=== PATIENT | female | born 1980 | race Native Hawaiian/Other Pacific Islander ===

== ENCOUNTER 2019-04-25 20:49 | Outpatient (CLI) | payer OTHER ==
--- NOTE | 2019-04-26 15:05 | Ultrasound Report ---
Reason: ABN VAGINAL BLEEDING Procedure Date: 04/25/2019 Accession Number: [id number] / [id number] Procedure: US - Pelvic w/Transvaginal CPT Code: Final Report FULL RESULT: EXAM: PELVIC ULTRASOUND EXAM DATE: 04/25/2019 10:00 PM. CLINICAL HISTORY: ABN VAGINAL BLEEDING. COMPARISON: None. TECHNIQUE: Realtime transabdominal pelvic scan performed to identify the uterus and adnexa and as an overview of other pelvic structures, followed by transvaginal scan to provide greater detail of the uterus and adnexa, with static image documentation. FINDINGS: Uterus: 8.7 x 5.5 x 6.6 cm, volume 165.4 cc. Anteverted position. Diffusely heterogeneous echotexture with scattered calcifications. Masses: 1.1 cm poorly defined submucosal fibroid. Endometrium: 12-15 mm. No focal endometrial abnormalities. Ill-defined borders. Cervix: Unremarkable. Right Ovary: 3.8 x 1.3 x 3.1 cm, volume 8.2 cc. Normal echotexture and blood flow. Left Ovary: 2.2 x 1.3 x 2.4 cm, volume 3.5 cc. Normal echotexture and blood flow. Free Fluid: None. Other: None. IMPRESSION: Submucosal fibroid measuring 1.1 cm. Ill-defined borders to the endometrium, nonspecific, can be seen with adenomyosis. This could be further evaluated with MRI. [facility]
== END 2019-04-25 20:50 | disposition home or self-care (01) ==
LOC: DI 20:49
PROVIDERS: ATTEND Nurse Practitioner Obstetrics & Gynecology
DX: D25.0 Submucous leiomyoma of uterus (principal)
CPT/HCPCS: 76830; 76856

== ENCOUNTER 2019-08-11 09:53 | Outpatient (CLI) | payer OTHER | END 2019-08-11 09:54 | disposition home or self-care (01) | LOC: COV 09:53 | PROVIDERS: ATTEND Obstetrics & Gynecology | DX: Z01.812 Encounter for preprocedural laboratory examination (principal); N93.9 Abnormal uterine and vaginal bleeding, unspecified | CPT/HCPCS: 81599 ==

== ENCOUNTER 2019-08-16 07:28 | Day surgery (SDC) | payer OTHER ==
[~2019-08-16 07:28] MED LIST: LACTATED RINGERS 1,000 ML IV ONE
[2019-08-16] MEDS ORDERED: MIDAZOLAM 2 MG/2 ML VIAL IVP ONE (07:29)
[2019-08-16] MEDS ORDERED: ONDANSETRON 4 MG/2 ML VIAL IVP ONE (07:29)
[2019-08-16] MEDS ORDERED: LIDOCAINE-MPF 2% 5 ML VIAL IM ONE (07:29)
[2019-08-16] MEDS ORDERED: ACETAMINOPHEN 1,000 MG/100 ML 100 ML IV ONE (07:29)
[2019-08-16] MEDS ORDERED: PROPOFOL 200 MG/20 ML VIAL IVP ONE (07:29)
[2019-08-16] MEDS ORDERED: fentaNYL 100 MCG/2 ML VIAL IVP ONE (07:29)
[2019-08-16] MEDS ORDERED: DEXAMETHASONE 4 MG/ML VIAL IVP ONE (07:29)
[2019-08-16] MEDS ORDERED: LIDOCAINE 1%-EPI 1:100000 30 ML MDV SUBQ ONE ×2 (07:30)
[2019-08-16] MEDS ORDERED: SILVER NITRATE APPLICATOR TOP ONE ×2 (07:31→09:02)
[2019-08-16 07:41] LABS: HCG UR QUAL NEGATIVE
--- NOTE | 2019-08-16 08:24 | ANESTHESIA ---
Pre-Anesthesia VS, & Labs - Diagnosis abnormal uterine bleeding - Procedure hysteroscopy, D&C Vital Signs: Temp Pulse Resp BP Pulse Ox 36.3 C L 80 12 128/88 H 100 08/16/19 07:31 08/16/19 07:31 08/16/19 07:31 08/16/19 07:31 08/16/19 07:31 Height 5 ft 4 in Weight (kg) 66.8 kg - NPO >8 hours - Is Patient ?: No - Lab Results Lab results reviewed: Yes Home Medications and Allergies Home Medications: Ambulatory Orders Fluticasone [Flonase] 1 spray IN DAILY 08/15/19 Methylphenidate HCl [Concerta] 54 mg PO DAILY 08/15/19 Prazosin [Minipress] 2 mg PO QPM 08/15/19 Propranolol [Inderal] 20 mg PO BID 08/15/19 buPROPion [Wellbutrin Sr] 300 mg PO DAILY 08/15/19 Oxymetazoline HCl [Afrin] 15 mg NS ONCE 06/19/15 Fluticasone [Flonase] 1 spray IN DAILY 08/15/19 Methylphenidate HCl [Concerta] 54 mg PO DAILY 08/15/19 Prazosin [Minipress] 2 mg PO QPM 08/15/19 Propranolol [Inderal] 20 mg PO BID 08/15/19 buPROPion [Wellbutrin Sr] 300 mg PO DAILY 08/15/19 Allergies/Adverse Reactions: Allergies Allergy/AdvReac Type Severity Reaction Status Date / Time ibuprofen Allergy Respiratory Verified 06/19/15 18:32 pseudoephedrine HCl * AdvReac Anxiety Verified 06/19/15 18:32 [From [facility]] Anes History & Medical History - Anesthetic History Anesthesia Complications: reports: No previous complications - Medical History Cardiovascular: reports: Hypertension Pulmonary: reports: None Gastrointestinal: reports: None Urinary: reports: None Musculoskeletal: reports: Scoliosis, Other Endocrine/Autoimmune: reports: HyPOthyroidism Skin: reports: None Smoking Status: Never smoker - Surgical History Gynecologic: Tubal ligation Exam General: Alert, Oriented x3, Cooperative Dental: WNL Mouth Opening: Greater than 4 Fingerbreadths Neck Mobility: Normal Mallampati classification: I Thyromental Distance: 4-6 cm Respiratory: Lungs clear Cardiovascular: Regular rate Plan Anesthesia Type: General, Total IV Consent for Procedure(s) Verified and Reviewed: Yes Code Status: Attempt Resuscitation ASA classification: 2-Mild systemic disease Is this case an emergency?: No
[2019-08-16] MEDS ORDERED: LIDOCAINE 1%-EPI 1:100000 20 ML MDV ONE (09:02)
[2019-08-16] MEDS ORDERED: oxyCODONE 5 MG TABLET PO PRN (10:14)
--- NOTE | 2019-08-16 10:44 | OPERATIVE REPORT ---
Operative Report - General Planned Procedure: Hysteroscopy D&C with possible polypectomy/myomectomy Pre-Op Diagnosis: Dysfunctional uterine bleeding with possible submucosal fibroid on pelvic u Procedure Performed: Hysteroscopy D&C with myomectomy Post Op Diagnosis: Same - Procedure Note Primary Surgeon: Tiffanie Sharma MD Anesthesia Provider: Airam Delgado CRNA Anesthesia Technique: MAC Pathology: Uterine contents IV Fluids (mL): 700 Estimated Blood Loss (mL): 10 Urine Output (mL): 350 Indications: 38 yo with DUB and pelvic us showing possible1.1 cm poorly defined submucosal fibroid and EMS of up to 15 mm with poorly defined borders. Findings: large, patulous cervix. Thickened endometrium with small submucosal fibroid-like mass in the anterior uterine wall distorting the uterine cavity. Normal bilateral tubal ostia. Once fibroid was released, uterine cavity expanded into normal uterine dimensions. Complications: None - Other Other Information/Narrative: Risks benefits and alternatives to the procedure were reviewed. Consent was again confirmed. Patient was taken to the operating room where she underwent general anesthesia. She was positioned in dorsolithotomy position with legs resting in yellowfin stirrups. She was prepped and draped in the usual sterile fashion. Preoperative antibiotics were not indicated. Preoperative checklist was performed. Exam under anesthesia was performed. Speculum was placed in the vagina and the cervix was visualized. Single-tooth tenaculum was placed at the anterior cervical lip. Paracervical block was administered using a total of 20 cc of 1% lidocaine with epinephrine was injected at the 4:00 and 8:00 positions lateral to the portio of the cervix. The cervical os was serially dilated with Hegar dilators to accommodate the caliber of the diagnostic hysteroscope. The hysteroscope was inserted and findings were noted as above. The hysteroscopic morcellator was inserted through the operative port. The intrauterine fibroid was morcellated under direct visualization. Uterine cavity was smooth and fully expanded into normal dimensions at close of the procedure. Hysteroscope was removed. Sharp curettage D&C was performed with sharp curettage. All instruments were removed from the uterus. Tenaculum was removed. Tenaculum sites were noted to be hemostatic. All instruments were removed from the vagina. Procedure was well-tolerated without complication. Fluid deficit: 475 cc
[2019-08-16] MEDS ORDERED: ONDANSETRON ODT 4 MG TABLET TL PRN (10:52)
[2019-08-16] MEDS ORDERED: ONDANSETRON 4 MG/2 ML VIAL ONE (10:57)
[2019-08-16] MEDS ORDERED: ONDANSETRON 4 MG/2 ML VIAL IVP PRN (10:57)
[2019-08-16] MEDS ORDERED: LACTATED RINGERS 1,000 ML IV ONE (11:09)
[2019-08-16 11:40] VITALS: BP 125/79
== END 2019-08-16 07:29 | disposition home or self-care (01) ==
LOC: SDS 07:28
PROVIDERS: ATTEND Obstetrics & Gynecology
PROC: 0UB98ZZ Excision of Uterus, Via Natural or Artificial Opening Endoscopic (ICD-10-PCS; principal; 2019-08-16 08:45)
DX: N93.8 Other specified abnormal uterine and vaginal bleeding (principal); R93.89 Abnormal findings on diagnostic imaging of other specified body structures; D25.9 Leiomyoma of uterus, unspecified; I10 Essential (primary) hypertension
CPT/HCPCS: 58561; 81025; 88305; A9270; J0131; J7120

== ENCOUNTER 2019-11-17 09:22 | Outpatient (CLI) | payer OTHER ==
[2019-11-17 09:43] LABS: BASOPHILS % (AUTO) 0.4 %; EOSINOPHILS # (AUTO) 0.1 10^3/uL (0.0-0.7); HGB - HEMOGLOBIN 13.1 g/dL (12.0-16.0); LYMPHOCYTES # (AUTO) 1.6 10^3/uL (1.5-3.5); MEAN CORPUSCULAR HEMOGLOBIN 28.9 pg (27.0-31.0); MEAN CORPUSCULAR HGB CONC 33.5 g/dL (32.0-36.0); MEAN CORPUSCULAR VOLUME 86.3 fL (81.0-99.0); MONOCYTES # (AUTO) 0.4 10^3/uL (0.0-1.0); MONOCYTES % (AUTO) 6.1 %; NEUTROPHILS # (AUTO) 5.1 10^3/uL (1.5-6.6); NEUTROPHILS % (AUTO) 70.2 %; PLT - PLATELET COUNT 296 10^3/uL (130-450); RED BLOOD COUNT 4.53 10^6/uL (4.20-5.40); RED CELL DISTRIBUTION WIDTH 12.6 % (12.0-15.0); WHITE BLOOD COUNT 7.2 x10^3/uL (4.8-10.8)
== END 2019-11-17 09:23 | disposition home or self-care (01) ==
LOC: LAB 09:22
PROVIDERS: ATTEND Obstetrics & Gynecology
DX: Z01.812 Encounter for preprocedural laboratory examination (principal); N93.9 Abnormal uterine and vaginal bleeding, unspecified; N85.00 Endometrial hyperplasia, unspecified; Z20.828 Contact with and (suspected) exposure to other viral communicable diseases
CPT/HCPCS: 36415; 85025

== ENCOUNTER 2019-11-22 06:30 | Day surgery (SDC) | payer OTHER ==
--- NOTE | 2019-11-21 23:18 | HISTORY & PHYSICAL EXAMINATION ---
HPI - History of Present Illness HPI Comment/Other: CC: PreOp TVH HPI: Pt is here today for a preop visit for a hysterectomy scheduled for 11/22/2019 ...................................................................DEMARIO Solis November 14, 2019 2:32 PM Patient is a 39-year-old G6, P6 here for preop assessment for total vaginal hysterectomy for dysfunctional uterine bleeding. She underwent a hysteroscopy D&C/myomectomy on 08/14. Pathology was benign. The patient reported that she had menses after surgery, with her last menstrual period was approximately 09/03. She reported that it was heavier than usual. After her surgery, she had about 2-1/2 to 3 weeks of no bleeding. Then she had her menses which lasted 9 days and then she had a week of no blood at all. Had additional bleeding at time of prior visit. Degree of continued bleeding had prompted desire for definitive management with hysterectomy. Of note, she has lost an additional 15# since time of last visit. She is not having any pain. She still has vaginal discharge, which she reports as a milky, clear discharge. Patient was initially seen in clinic in March 2019. She reported dysfunctional uterine bleeding. She had a pelvic ultrasound showing that she has a 1.1 cm poorly defined submucosal fibroid. Endometrium was 12 to 15 mm thick. No focal endometrial abnormalities. Ill-defined borders.Defined borders nonspecific can be seen in adenomyosis as per radiology. Patient has undergone a LEEP in 2009 with a normal Pap following. Last Pap was April 21, 2019. Normal and HPV negative.Contraception is bilateral tubal ligation. No prior STIs. Past medical history significant for hypertension and low back pain. Medications include Wellbutrin, propanolol for anxiety. She has had a 45 pound unintended weight loss within the last year. Allergies: IBUPROFEN (Moderate) Medications: TRANEXAMIC ACID 650 MG ORAL TABLET (TRANEXAMIC ACID) Take one tablet by mouth three times a day for 5 days during menses; Route: ORAL MINIPRESS 2 MG ORAL CAPSULE (PRAZOSIN HCL) leila one tablet by mouth daily; Route: ORAL WELLBUTRIN XL 300 MG ORAL TABLET EXTENDED RELEASE 24 HOUR (BUPROPION HCL) take one tablet by mouth daily; Route: ORAL PROPRANOLOL HCL 20 MG ORAL TABLET (PROPRANOLOL HCL) tkae two tablet by mouth daily; Route: ORAL HYDROXYZINE HCL 25 MG ORAL TABLET (HYDROXYZINE HCL) take one tablet by mouth daily; Route: ORAL CONCERTA 36 MG ORAL TABLET EXTENDED RELEASE (METHYLPHENIDATE HCL) Take one tablet by mouth twice daily; Route: ORAL Problems: Preoperative exam (ICD-V72.84) (XIU05-D56.818) Post op (ICD-V67.00) (SKX84-J82.890) Diastasis recti (ICD-728.84) (SPW68-K04.08) Thickened endometrium (ICD-793.5) (SGG29-O90.00) Abnormal vaginal bleeding (ICD-626.9) (DBX23-G23.9) (Hx of) Abnormal findings, Pap smear, cervix (ICD-795.00) (UZV46-S72.619) Cervix, screening for malignant neoplasm (ICD-V76.2) (SFP58-D11.4) Risk Factors: Smoked Tobacco Use: Never smoker Smokeless Tobacco Use: Never Passive Smoke Exposure: no HIV High Risk Behavior: no Exercise: no Seatbelt Use: 100 % Sun Exposure: occasionally Alcohol Use: yes Type: Wine Drinks per day: social Drug Use: no Vital Signs: Patient Profile: 38 Years Old Female Height: 64 inches (162.56 cm) Weight: 135 pounds BMI: 23.26 BP sittin / 84 Cuff size: regular Vitals Entered By: DEMARIO Solis (November 14, 2019 2:32 PM) Meds Reviewed: Done Allergies Reviewed: Done Questionnaire Would you like to become in the next year? No Are you currently using contraception? Yes Education provided to patient? 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 Physical Constitutional: GEN: NAD HEAD: NCAT EYES: No scleral icterus or conjunctival injection NECK: No cervical LAD or TM CV: RRR RESP: CTAB, normal effort ABD: S&NT/ND PSYCH: appropriate affect NEURO: alert and oriented, normal gait and coordination EXT: WWP Impression & Recommendations: Problem # 1: Preoperative exam (ICD-V72.84) (TLF27-B84.818) Preop examination for total vaginal hysterectomy and bilateral salpingectomy. We discussed risks, benefits, alternatives. Reviewed all surgical procedures carry risks of bleeding, infection, and damage nearby tissue and organs. Discussed the risk of infection with blood transfusion is relatively low. Risk of HIV is 1 in 2 million nationwide, risk of hepatitis is 1/million nationwide. Reviewed for possibility of transfusion reaction and possible management with medications. She is provided consent for blood transfusion. Reviewed that anatomically speaking that the vagina is full of bacteria. We cannot fully sterilized the vagina, nor would we want to. When the incision is made to release the uterus from the abdomen, a pathway for bacteria into the otherwise sterile abdominal cavity is created. For this reason we will give her IV antibiotics. She denies any allergies to antibiotics. We discussed the anatomical proximity of other organs near the uterus including but not limited to the bladder, ureters, and bowel. As surgeons, we used a number of surgical to techniques to avoid damaging any of these other organs. We reviewed, that despite her best efforts, sometimes injury occurs to these organs. We discussed that this may cause complicated post operative course. We also discussed the possibility of converting to an open or laparoscopic procedure. She provided consent to all of the above. We will proceed to surgery with a scheduled operating room date. Orders: PRE OP -[id number] ([id number]) Gender ID Identifies as Female T: 6 L: 6 LMP: 03/28/2019 Height: 64 (09/28/2019 1:26:41 PM) Weight: 135 Is pt sexualy active? yes Is patient on control? Tubal Ligation Control Plan(per PISQ): Female sterilization Last Pap: Normal (04/21/2019 3:58:10 PM) Next pap due: 04/21/2024 (04/25/2019 3:57:59 PM) History of Colpo, LEEP Last EMB: Positive (06/15/2019 10:44:46 AM) Current Allergies: IBUPROFEN (Moderate) Current Meds: TRANEXAMIC ACID 650 MG ORAL TABLET (TRANEXAMIC ACID) Take one tablet by mouth three times a day for 5 days during menses; Route: ORAL MINIPRESS 2 MG ORAL CAPSULE (PRAZOSIN HCL) leila one tablet by mouth daily; Route: ORAL WELLBUTRIN XL 300 MG ORAL TABLET EXTENDED RELEASE 24 HOUR (BUPROPION HCL) take one tablet by mouth daily; Route: ORAL PROPRANOLOL HCL 20 MG ORAL TABLET (PROPRANOLOL HCL) tkae two tablet by mouth daily; Route: ORAL HYDROXYZINE HCL 25 MG ORAL TABLET (HYDROXYZINE HCL) take one tablet by mouth daily; Route: ORAL CONCERTA 36 MG ORAL TABLET EXTENDED RELEASE (METHYLPHENIDATE HCL) Take one tablet by mouth twice daily; Route: ORAL PMH/PSH - Past Medical History Cardiovascular: positive: Hypertension Respiratory: positive: Asthma Endocrine/Autoimmune: positive: HyPOthyroidism GI: positive: None : positive: None HEENT: positive: Chronic vision loss Psych: positive: Depression, Anxiety, ADD/ADHD, Post traumatic stress disorder Musculoskeletal: positive: Scoliosis, Chronic back pain, Other Derm: positive: None MRSA Hx?: No - 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, Tubal ligation, Other Social & Family Hx - Social History Does the pt smoke?: No Smoking Status: Never smoker Does the pt drink ETOH?: No Does the pt have substance abuse?: No Meds/Allgy - Home Medications Home Medications: Ambulatory Orders Medication Instructions Recorded Confirmed Oxymetazoline HCl [Afrin] 15 mg NS ONCE PRN 06/19/15 11/13/19 Fluticasone [Flonase] 1 spray IN QPM 08/15/19 11/13/19 Methylphenidate HCl [Concerta] 36 mg PO BID 08/15/19 11/13/19 Prazosin [Minipress] 4 mg PO QPM 08/15/19 11/13/19 Propranolol [Inderal] 20 mg PO BID 08/15/19 11/13/19 buPROPion [Wellbutrin Sr] 300 mg PO DAILY 08/15/19 11/13/19 hydrOXYzine HCL [Hydroxyzine HCl] 25 mg PO QPM 11/13/19 11/13/19 - Allergies Allergies/Adverse Reactions: Allergies Allergy/AdvReac Type Severity Reaction Status Date / Time ibuprofen Allergy Respiratory Verified 06/19/15 18:32 pseudoephedrine HCl * AdvReac Anxiety Verified 06/19/15 18:32 [From [facility]]
[~2019-11-22 06:30] MED LIST changes: +ACETAMINOPHEN 1,000 MG/100 ML 100 ML IV ONE; +CEFAZOLIN SODIUM IN 0.9 % NACL 2 GM/100 ML BAG IV ONE; +CELECOXIB 100 MG CAPSULE PO ONE; +GABAPENTIN 400 MG CAPSULE ONE; -LACTATED RINGERS 1,000 ML IV ONE; +PHENAZOPYRIDINE 100 MG TABLET PO ONE
[2019-11-22] MEDS ORDERED: LACTATED RINGERS 1,000 ML IV ONE ×2 (06:48→10:51)
[2019-11-22 07:11] LABS: HCG UR QUAL NEGATIVE
[2019-11-22] MEDS ORDERED: ATROPINE ABBOJECT 1 MG/10 ML SYRINGE IVP PRN (07:12)
[2019-11-22] MEDS ORDERED: fentaNYL 100 MCG/2 ML VIAL IVP PRN (07:12)
[2019-11-22] MEDS ORDERED: ePHEDrine 50 MG/ML VIAL IVP PRN (07:12)
[2019-11-22] MEDS ORDERED: MORPHINE 2 MG/ML CARPUJECT IVP PRN (07:12)
[2019-11-22] MEDS ORDERED: ONDANSETRON 4 MG/2 ML VIAL IVP PRN (07:12)
[2019-11-22] MEDS ORDERED: METOCLOPRAMIDE 10 MG/2 ML VIAL IVP PRN ×2 (07:12→17:56)
[2019-11-22] MEDS ORDERED: NALOXONE 0.4 MG/ML VIAL IVP PRN (07:12)
[2019-11-22] MEDS ORDERED: HYDROmorphone 0.5 MG/0.5 ML SYRINGE IVP PRN (07:12)
--- NOTE | 2019-11-22 07:15 | ANESTHESIA ---
Pre-Anesthesia VS, & Labs - Diagnosis abnormal vaginal bleeding, thickened endometrium, s/p hysteroscopy - Procedure Total vaginal hysterectomy, cystoscopy Vital Signs: Temp Pulse Resp BP Pulse Ox 36.3 C L 87 18 137/99 H 98 11/22/19 06:49 11/22/19 06:49 11/22/19 06:49 11/22/19 06:49 11/22/19 06:49 Height 5 ft 4 in Weight (kg) 69.8 kg - NPO >8 hours - Is Patient ?: No - Lab Results Lab results reviewed: Yes Home Medications and Allergies Home Medications: Ambulatory Orders hydrOXYzine HCL [Hydroxyzine HCl] 25 mg PO QPM 11/13/19 Active Medications Fentanyl (Fentanyl) 25 - 50 mcg IVP Q5M PRN PRN Reason: BREAKTHROUGH PAIN ([facility] Choice) Stop: 11/23/19 07:12 Hydromorphone HCl (Dilaudid Inj Syringe) 0.2 - 0.6 mg IVP Q5M PRN PRN Reason: PAIN ([facility] Choice) Stop: 11/23/19 07:12 Lactated Ringer's (Lr) 1,000 mls @ 100 mls/hr IV .Q10H URI Stop: 11/22/19 17:59 Scopolamine HBr (Transderm-Scop) 1 patch TOP Q3D URI Oxymetazoline HCl [Afrin] 15 mg NS ONCE PRN 06/19/15 Fluticasone [Flonase] 1 spray IN QPM 08/15/19 Methylphenidate HCl [Concerta] 36 mg PO BID 08/15/19 Prazosin [Minipress] 4 mg PO QPM 08/15/19 Propranolol [Inderal] 20 mg PO BID 08/15/19 buPROPion [Wellbutrin Sr] 300 mg PO DAILY 08/15/19 hydrOXYzine HCL [Hydroxyzine HCl] 25 mg PO QPM 11/13/19 Allergies/Adverse Reactions: Allergies Allergy/AdvReac Type Severity Reaction Status Date / Time ibuprofen Allergy Respiratory Verified 11/22/19 06:59 pseudoephedrine HCl * AdvReac Anxiety Verified 11/22/19 06:59 [From [facility]] Anes History & Medical History - Anesthetic History Anesthesia Complications: reports: Post-Operative Nausea/Vomiting Family history of Anesthesia Complications: Denies Family history of Malignant Hyperthermia: Denies - Medical History Gastrointestinal: reports: None Urinary: reports: None Musculoskeletal: reports: Scoliosis, Chronic back pain, Other Skin: reports: None Smoking Status: Never smoker Psychosocial: reports: Depression, Anxiety - Surgical History Gynecologic: Dilation and currettage, Tubal ligation, Other Exam General: Alert, Oriented x3, Cooperative, No acute distress Dental: WNL Mouth Openin Fingerbreadth Neck Mobility: Normal Mallampati classification: I Respiratory: Lungs clear, Normal breath sounds, No respiratory distress Cardiovascular: Regular rate, Normal S1, Normal S2, No murmurs Plan Anesthesia Type: General Consent for Procedure(s) Verified and Reviewed: Yes Code Status: Attempt Resuscitation ASA classification: 1-Healthy patient Is this case an emergency?: No
[2019-11-22] MEDS ORDERED: LIDOCAINE 1%-EPI 1:100000 20 ML MDV ONE (07:45)
[2019-11-22] MEDS ORDERED: METHYLENE BLUE 0.5% 50 MG/10 ML AMPULE ONE (07:45)
[2019-11-22] MEDS ORDERED: VASOPRESSIN 20 UNIT/ML VIAL ONE (07:45)
[2019-11-22] MEDS ORDERED: HYDROmorphone 1 MG/ML CARPUJECT IVP ONE (07:57)
[2019-11-22] MEDS ORDERED: PROPOFOL 200 MG/20 ML VIAL IVP ONE (07:57)
[2019-11-22] MEDS ORDERED: MIDAZOLAM 2 MG/2 ML VIAL IVP ONE (07:57)
[2019-11-22] MEDS ORDERED: ROCURONIUM 50 MG/5 ML VIAL IVP ONE (07:57)
[2019-11-22] MEDS ORDERED: LIDOCAINE-MPF 2% 5 ML VIAL IM ONE (07:57)
[2019-11-22] MEDS ORDERED: fentaNYL 100 MCG/2 ML VIAL IVP ONE (07:57)
[2019-11-22] MEDS ORDERED: ONDANSETRON 4 MG/2 ML VIAL IVP ONE (07:57)
[2019-11-22] MEDS ORDERED: DEXAMETHASONE 4 MG/ML VIAL IVP ONE (07:57)
[2019-11-22] MEDS ORDERED: ACETAMINOPHEN 1,000 MG/100 ML 100 ML IV ONE (07:57)
[2019-11-22] MEDS ORDERED: SCOPOLAMINE PATCH TOP SCH (08:00)
[2019-11-22] MEDS ORDERED: LACTATED RINGERS 1,000 ML IV SCH (08:00)
[2019-11-22] MEDS ORDERED: METHYLENE BLUE 0.5% 50 MG/10 ML AMPULE IR ONE (08:19)
[2019-11-22] MEDS ORDERED: LIDOCAINE 1%-EPI 1:100000 30 ML MDV SUBQ ONE (08:28)
[2019-11-22] MEDS ORDERED: VASOPRESSIN 20 UNIT/ML VIAL IVP ONE (08:30)
[2019-11-22] MEDS ORDERED: oxyCODONE 5 MG TABLET PO PRN (11:18)
[2019-11-22] MEDS ORDERED: ONDANSETRON ODT 4 MG TABLET TL PRN (11:18)
[2019-11-22] MEDS ORDERED: HYDROmorphone 1 MG/ML CARPUJECT IVP PRN (11:18)
[2019-11-22] MEDS ORDERED: HYDROmorphone 0.5 MG/0.5 ML SYRINGE ONE (11:27)
--- NOTE | 2019-11-22 11:30 | OPERATIVE REPORT ---
Operative Report - General Procedure Date: 11/22/19 Planned Procedure: Total vaginal hysterectomy and cystoscopy Pre-Op Diagnosis: Dysfunctional uterine bleeding Procedure Performed: Total vaginal hysterectomy and cystoscopy Post Op Diagnosis: Same - Procedure Note Primary Surgeon: Tiffanie Sharma MD Secondary Surgeon: Marc Cortez MD Anesthesia Provider: Nishant Solano CRNA Anesthesia Technique: General ET tube Pathology: Uterus with cervix IV Fluids (mL): 500 Estimated Blood Loss (mL): 75 Urine Output (mL): 300 Indications: Patient is a 39 yo with dysfunctional uterine bleeding who has failed conservative management and desires definitive surgical management. She has previously undergone tubal ligation and confirms she has not further interest in childbearing. Findings: Normal appearing bulbous uterus. Normal appearing ovaries. Fallopian tubes not visualized. Cystoscopy performed post-operatively showed bilateral ureteral jets and absence of suture or injury on survey of the bladder mucosa. Complications: None - Other Other Information/Narrative: Consent was again confirmed. The patient was brought to the OR and underweight general anesthesia. She was placed in dorsal lithotomy with legs supported in yellowfin stirrups. Bimanual exam was performed. She was then prepared and draped in the usual sterile fashion. Jiménez catheter was in place and backfilled with 50 cc of dilute methylene blue and clamped. SCDs were confirmed to be in place and operating. A surgical time out was performed. Administration of 2g IV cefazolin was confirmed. A weighted speculum was placed in the posterior vaginal vault. The cervix was grasped with a a double toothed tenaculum clamp on both its anterior and posterior lips. A total of 20 cc of 20mg vasopressin/100 cc was injected in a circumferential direction around the cervix. With downward traction, we made a circumferential incision of the vaginal epithelium at the junction of the cervix with the bovie cautery to aid entry into the peritoneum. The overlying vaginal epithelium was dissected off the underlying cervical stroma in an combination of sharp and blunt dissection. The cervicovesical space was then created by both blunt and sharp dissection. At no point was there spillage of methylene blue. Entrance into the anterior space was completed and a right angle retractor was inserted under the bladder. The posterior cul-de-sac was entered sharply in the same manner. A long necked weighted speculum was then placed in the vagina through the posterior space. The uterosacral ligaments were clamped with Jose clamps and ligated with #0 Vicryl suture bilaterally. A moistened sponge stick was placed in the posterior cul de sac to retract the bowel and patient was placed in Trendelenburg position. A laparoscopic Ligasure bipolar device was then used to seal and ligate each pedicle. The uterosacral ligaments were suture ligated as above. The cardinal ligaments, uterine vessels, broad ligaments, and utero-ovarian pedicles were sealed and ligated with the Ligasure device. The ovaries were visualized on either side. The tubes were surgically absent. Ovaries were inspected as with findings noted above. We then removed the weighted duckbill speculum and placed a regular speculum in the vaginal vault and visualized the entire area. We inspected for hemostasis, and this was secured. The peritoneum was closed with 2-0 Vicryl with a running pursestring suture. The uterosacral ligaments were then fixed to the anterior and posterior vaginal cuff margins to aid in vaginal support. The vaginal cuff was then closed with interrupted figure of 8 sutures using 0-Vicryl. Hemostasis was excellent. The vaginal vault was cleared of debris. The sponge count was correct times 2 at this time. A Jiménez catheter was then unclamped. The bladder was drained and the Jiménez was removed. The cystoscope was inserted and the bladder was distended with normal saline. The survey of all of the bladder surfaces was completed and was noted to be absent of suture or trauma. Ureteral jets were observed directly bilaterally. Bladder was drained and cystoscope was removed. Jiménez catheter was replaced. All instruments were removed from the vagina and goldman hemostasis was noted. The patients procedure was terminated. She was sent to the Recovery Room in good condition. Dr. Cortez assisted with retraction, assistance with suturing, cystoscopy, and sharing of surgical insight.
--- NOTE | 2019-11-22 13:08 | ANESTHESIA POST OP EVALUATION ---
Anesthesia Post Eval - Post Anesthesia Eval Vitals: Last Vital Signs Temp 36.9 C 11/22/19 11:45 Pulse 79 11/22/19 11:45 Resp 14 11/22/19 11:45 BP 120/68 11/22/19 11:45 Pulse Ox 97 11/22/19 11:45 CV Function Including HR & BP: positive: Stable Pain Control: positive: Satisfactory Nausea & Vomiting: positive: Negative Mental Status: positive: Baseline Respiratory Status: Airway Patent Hydration Status: Satisfactory Anesthesia Complications: positive: None
[2019-11-22] MEDS: ACETAMINOPHEN 500 MG TABLET PO SCH ×2 (14:01→19:33)
[2019-11-22] MEDS: LACTATED RINGERS 1,000 ML IV SCH ×2 (14:01→23:57)
[2019-11-22] MEDS: SIMETHICONE CHEW 80 MG TABLET PO PRN ×2 (14:02→18:03)
[2019-11-22] MEDS: DOCUSATE SODIUM 100 MG CAPSULE PO SCH (21:48)
[2019-11-22] MEDS: CELECOXIB 100 MG CAPSULE PO SCH (21:48)
[2019-11-23] MEDS: ACETAMINOPHEN 500 MG TABLET PO SCH ×2 (03:38→11:47)
[2019-11-23 05:20] LABS: BASOPHILS % (AUTO) 0.4 %; EOSINOPHILS % (AUTO) 0.4 %; HGB - HEMOGLOBIN 10.8 g/dL (12.0-16.0); LYMPHOCYTES # (AUTO) 1.8 10^3/uL (1.5-3.5); LYMPHOCYTES % (AUTO) 18.6 %; MEAN CORPUSCULAR HEMOGLOBIN 28.3 pg (27.0-31.0); MEAN CORPUSCULAR HGB CONC 32.8 g/dL (32.0-36.0); MEAN CORPUSCULAR VOLUME 86.1 fL (81.0-99.0); MEAN PLATELET VOLUME 9.2 fL (7.9-10.8); MONOCYTES # (AUTO) 0.7 10^3/uL (0.0-1.0); MONOCYTES % (AUTO) 6.9 %; NEUTROPHILS # (AUTO) 7.2 10^3/uL (1.5-6.6); NEUTROPHILS % (AUTO) 73.3 %; PLT - PLATELET COUNT 293 10^3/uL (130-450); RED BLOOD COUNT 3.82 10^6/uL (4.20-5.40); RED CELL DISTRIBUTION WIDTH 12.7 % (12.0-15.0); WHITE BLOOD COUNT 9.8 x10^3/uL (4.8-10.8)
[2019-11-23] MEDS ORDERED: ENOXAPARIN 40 MG/0.4 ML SYRINGE SUBQ SCH (09:00)
[2019-11-23 09:01] VITALS: BP 124/76
[2019-11-23] MEDS: CELECOXIB 100 MG CAPSULE PO SCH (09:32)
[2019-11-23] MEDS: DOCUSATE SODIUM 100 MG CAPSULE PO SCH (09:32)
[2019-11-23] MEDS: LACTATED RINGERS 1,000 ML IV SCH (09:34)
--- NOTE | 2019-11-23 11:34 | PROVIDER PROGRESS NOTE ---
Subjective - Prog Note Date Prog Note Date: 11/23/19 Prog Note Time: 10:00 - Subjective Subjective: Patient is up and ambulating, tolerating po. Pain is well managed on po meds. Voiding. No concerns. Nausea relieved and minimal spotting. Objective - Vital Signs/Intake & Output Reviewed Vital Signs: Yes Vital Signs: Vital Signs x48h Temp Pulse Resp BP Pulse Ox 11/23/19 09:00 98.6 F 74 18 124/76 100 11/23/19 03:45 98.8 F 73 16 112/65 100 Intake & Output: Intake & Output 11/20/19 11/21/19 11/22/19 11/23/19 23:59 23:59 23:59 23:59 Intake Total 4054.549 9451.667 Output Total 2375 1750 Balance -1121.667 -518.333 - Objective General Appearance: positive: No acute distress Respiratory: positive: Chest non-tender, No respiratory distress Cardiovascular: positive: Regular rate & rhythm, Other Abdomen: positive: Non-tender Skin: positive: Color nml Extremities: positive: Non-tender, Nml appearance Neurologic/Psychiatric: positive: Oriented x3 - Lab Results Fish Bones: 11/23/19 04:25 Other Labs: Lab Results x24hrs 11/23/19 Range/Units 04:25 WBC 9.8 (4.8-10.8) x10^3/uL RBC 3.82 L (4.20-5.40) 10^6/uL Hgb 10.8 L (12.0-16.0) g/dL Hct 32.9 L (37.0-47.0) % MCV 86.1 (81.0-99.0) fL MCH 28.3 (27.0-31.0) pg MCHC 32.8 (32.0-36.0) g/dL RDW 12.7 (12.0-15.0) % Plt Count 293 (130-450) 10^3/uL MPV 9.2 (7.9-10.8) fL Neut # (Auto) 7.2 H (1.5-6.6) 10^3/uL Lymph # (Auto) 1.8 (1.5-3.5) 10^3/uL [place] # (Auto) 0.7 (0.0-1.0) 10^3/uL Eos # (Auto) 0.0 (0.0-0.7) 10^3/uL Baso # (Auto) 0.0 (0.0-0.1) 10^3/uL Absolute Nucleated RBC 0.00 x10^3/uL Nucleated RBC % 0.0 /100WBC Assessment/Plan - Problem List (1) S/P vaginal hysterectomy Impression: POD#1 s/p TVH Doing well Meeting goals for discharge Routine discharge instructions were given DC to home FU in clinic in 1 and 4 weeks
== END 2019-11-23 12:00 | disposition home or self-care (01) ==
LOC: SDS 06:30 → MS2 12:16 → SDS 11-23 12:00
PROVIDERS: ATTEND Obstetrics & Gynecology
PROC: 0UT9FZZ Resection of Uterus, Via Natural or Artificial Opening With Percutaneous Endoscopic Assistance (ICD-10-PCS; principal; 2019-11-22 07:30)
DX: N80.0 Endometriosis of uterus (principal); D25.9 Leiomyoma of uterus, unspecified; J45.909 Unspecified asthma, uncomplicated; I10 Essential (primary) hypertension; E03.9 Hypothyroidism, unspecified; F41.9 Anxiety disorder, unspecified; F32.9 Major depressive disorder, single episode, unspecified; F90.9 Attention-deficit hyperactivity disorder, unspecified type; F43.10 Post-traumatic stress disorder, unspecified; R63.4 Abnormal weight loss; Z68.23 Body mass index [BMI] 23.0-23.9, adult; G89.29 Other chronic pain; M41.9 Scoliosis, unspecified; H54.7 Unspecified visual loss; Z79.899 Other long term (current) drug therapy
CPT/HCPCS: 36415; 58550; 81025; 85025; A9270; J0131; J0690; J1170; J1650; J2765; J3490; J7120; Q0162

== ENCOUNTER 2020-01-04 11:15 | Outpatient (CLI) | payer OTHER ==
[2020-01-05 20:15] LABS: CANDIDA GROUP DNA NEGATIVE (NEGATIVE); CANDIDA KRUSEI DNA NEGATIVE (NEGATIVE); TRICHOMONAS VAGINALIS DNA NEGATIVE (NEGATIVE)
== END 2020-01-04 23:59 | disposition home or self-care (01) ==
LOC: LAB.R 11:15
PROVIDERS: ATTEND Obstetrics & Gynecology
DX: N39.0 Urinary tract infection, site not specified (principal); N89.8 Other specified noninflammatory disorders of vagina
CPT/HCPCS: 87077; 87086; 87181; 87661; 87801

== ENCOUNTER 2020-02-20 07:37 | Outpatient (CLI) | payer OTHER ==
--- NOTE | 2020-02-20 11:09 | XRAY Report ---
PROCEDURE: Lumbar Spine 2 View INDICATIONS: CHRONIC LOW BACK PAIN TECHNIQUE: 2 views of the lumbar spine were acquired. COMPARISON: Lumbar spine MRI dated 10/20/2014 FINDINGS: Bones: 5 [id number] vertebrae are present, with relatively rudimentary ribs at the T12 level. T here is dextroconvex curvature of the spine at the thoracolumbar junction with apex at the L1 level. No significant spondylolisthesis is seen. No vertebral body compression fractures. No suspicious bon y lesions. Mild degenerative endplate changes and facet hypertrophy are seen at the L4-5 and L5-S1 l evels. Soft tissues: Overlying bowel gas pattern is normal. No suspicious soft tissue calcifications. IMPRESSION: 1. No acute osseous abnormality. 2. Mild spondylosis at L4-5 and L5-S1. 3. Mild dextroconvex curvature. Reviewed by: Erik White MD on 02/20/2020 10:07 AM [facility] Approved by: Erik White MD on 02/20/2020 10:07 AM [facility] Station ID: [id number]
== END 2020-02-20 23:59 | disposition home or self-care (01) ==
LOC: DI.WCP 07:37
PROVIDERS: ATTEND Nurse Practitioner Family
DX: M47.817 Spondylosis without myelopathy or radiculopathy, lumbosacral region (principal)

== ENCOUNTER 2020-02-21 08:00 | Outpatient (CLI) | payer OTHER ==
[2020-02-21 18:42] LABS: ALBUMIN/GLOBULIN RATIO 1.5 (1.0-2.2); ALKALINE PHOSPHATASE 60 IU/L (42-121); ALT ALANINE AMINOTRANSFERASE 14 IU/L (10-60); AST ASPARTATE AMINOTRANSFERASE 15 IU/L (10-42); BILIRUBIN,TOTAL 0.6 mg/dL (0.2-1.0); BUN - BLOOD UREA NITROGEN 8 mg/dL (6-20); CALCIUM 9.6 mg/dL (8.5-10.3); CARBON DIOXIDE - CO2 23 mmol/L (21-32); CHLORIDE 104 mmol/L (101-111); CHOL/HDL RATIO 3.1 (<4.4); CHOLESTEROL 187 mg/dL; CREATININE 0.7 mg/dL (0.4-1.0); GLUCOSE 85 mg/dL (70-100); HDL CHOLESTEROL 61 mg/dL; LDL CHOLESTEROL,CALCULATED 107 mg/dL; LDL/HDL RATIO 1.8 (<4.4); SODIUM 136 mmol/L (135-145); TOTAL PROTEIN 8.4 g/dL (6.7-8.2); VLDL CHOLESTEROL 19 mg/dL
== END 2020-02-21 08:01 | disposition home or self-care (01) ==
LOC: LAB.WCP 08:00
PROVIDERS: ATTEND Nurse Practitioner Family
DX: R03.0 Elevated blood-pressure reading, without diagnosis of hypertension (principal)
CPT/HCPCS: 36415; 80053; 80061; 83721; 84443

== ENCOUNTER 2020-12-10 08:09 | Outpatient (CLI) | payer OTHER ==
--- NOTE | 2020-12-10 13:21 | MRI Report ---
PROCEDURE: Lumbar Spine W/O INDICATIONS: LEFT LUMBAR RADICULOPATHY TECHNIQUE: Noncontrast sagittal T1 spin echo and T2 fast echo, sagittal STIR, axial T1 and T2 fast spin echo thr ough the lumbar spine. In cases with scoliosis, additional coronal T2 fast spin echo may be performe d. COMPARISON: MRI lumbar spine 11/08/2014 FINDINGS: Image quality: Excellent. Alignment and Curvature: There is appearance of transitional anatomy with lumbarization of what appe ars to be the first sacral vertebral body. In keeping with prior numbering, vertebral bodies are labe led one through 5. Bone Marrow: Marrow is of normal overall signal. Moderate to severe reactive endplate changes are p resent at L4-5, mild L3-4, L5-S1. No acute vertebral body compression fractures. Spinal Cord: Conus medullaris terminates at the L1 level. Visualized cord demonstrates normal signa l and size. Paraspinous Soft Tissues: No paravertebral masses. Discs: Severe desiccation is present L4-5 and L5-S1, mild throughout the remainder of the lumbar spin e. T12-L1: Minimal left posterior paracentral protrusion without spinal stenosis or foraminal narrowing . L1-L2: No disc bulge, spinal stenosis or foraminal narrowing. No interval change. Facet and ligame ntum flavum hypertrophy are present. L2-L3: No disc bulge, spinal stenosis or foraminal narrowing. No interval change. Facet and ligame ntum flavum hypertrophy are present. L3-L4: No disc bulge, spinal stenosis or foraminal narrowing. No interval change. Facet and ligamen gomez flavum hypertrophy are present. L4-L5: Disc bulge with posterior central/right paracentral protrusion, which is become mildly more prominent compared to prior exam. There is indentation of the anterior thecal sac. Mild right foramin al narrowing including through the lateral recess. Facet and ligamentum flavum hypertrophy are presen t. L5-S1: Minimal disc bulge without spinal stenosis or foraminal narrowing. IMPRESSION: 1. Multilevel degenerative changes, overall relatively stable. 2. Mildly increased prominence of disc bulge with superimposed protrusion at L4-5. 3. Foraminal narrowing remains most prominent at L5-S1. Reviewed by: Nikki Manzano MD on 12/10/2020 1:19 PM PDT Approved by: Nikki Manzano MD on 12/10/2020 1:19 PM PDT Station ID: [id number]
== END 2020-12-10 08:10 | disposition home or self-care (01) ==
LOC: DI 08:09
PROVIDERS: ATTEND Nurse Practitioner
DX: M51.26 Other intervertebral disc displacement, lumbar region (principal); M47.816 Spondylosis without myelopathy or radiculopathy, lumbar region; M47.817 Spondylosis without myelopathy or radiculopathy, lumbosacral region; M51.36 Other intervertebral disc degeneration, lumbar region; M48.061 Spinal stenosis, lumbar region without neurogenic claudication; M51.37 Other intervertebral disc degeneration, lumbosacral region

== ENCOUNTER 2021-10-16 08:46 | Outpatient (CLI) | payer OTHER ==
[2021-10-16 12:18] LABS: BILIRUBIN,URINE NEGATIVE (NEGATIVE); GLUCOSE, URINE (UA) NEGATIVE (NEGATIVE); KETONES,URINE (UA) NEGATIVE (NEGATIVE); LEUKOCYTE ESTERASE, URINE NEGATIVE (NEGATIVE); NITRITE,URINE NEGATIVE (NEGATIVE); OCCULT BLOOD,URINE NEGATIVE (NEGATIVE); PROTEIN,URINE NEGATIVE (NEGATIVE); UROBILINOGEN,URINE 0.2 (NORMAL) E.U./dL (NORMAL)
[2021-10-16 12:19] LABS: CLARITY,URINE CLEAR (CLEAR)
[2021-10-16 12:20] LABS: BASOPHILS # (AUTO) 0.1 10^3/uL (0.0-0.1); BASOPHILS % (AUTO) 0.9 %; EOSINOPHILS # (AUTO) 0.1 10^3/uL (0.0-0.7); EOSINOPHILS % (AUTO) 2.2 %; HCT - HEMATOCRIT 41.3 % (37.0-47.0); LYMPHOCYTES # (AUTO) 1.4 10^3/uL (1.5-3.5); LYMPHOCYTES % (AUTO) 25.1 %; MEAN CORPUSCULAR HGB CONC 33.9 g/dL (32.0-36.0); MEAN CORPUSCULAR VOLUME 88.6 fL (81.0-99.0); MEAN PLATELET VOLUME 9.6 fL (7.9-10.8); MONOCYTES # (AUTO) 0.4 10^3/uL (0.0-1.0); MONOCYTES % (AUTO) 6.3 %; NEUTROPHILS # (AUTO) 3.6 10^3/uL (1.5-6.6); NEUTROPHILS % (AUTO) 65.3 %; PLT - PLATELET COUNT 358 10^3/uL (130-450); RED BLOOD COUNT 4.66 10^6/uL (4.20-5.40); WHITE BLOOD COUNT 5.5 x10^3/uL (4.8-10.8)
[2021-10-16 12:48] LABS: RHEUMATOID FACTOR NEGATIVE (Negative)
[2021-10-16 12:53] LABS: BUN - BLOOD UREA NITROGEN 10 mg/dL (6-20); CARBON DIOXIDE - CO2 26 mmol/L (21-32); CHLORIDE 103 mmol/L (101-111); CREATININE 0.7 mg/dL (0.4-1.0); POTASSIUM 3.6 mmol/L (3.5-5.0); SODIUM 138 mmol/L (135-145); THYROID STIMULATING HORMONE 1.22 uIU/mL (0.34-5.60)
[2021-10-16 12:54] LABS: ALBUMIN 4.2 g/dL (3.2-5.5); ALBUMIN/GLOBULIN RATIO 1.4 (1.0-2.2); ALKALINE PHOSPHATASE 62 IU/L (42-121); ALT ALANINE AMINOTRANSFERASE 16 IU/L (10-60); AST ASPARTATE AMINOTRANSFERASE 16 IU/L (10-42); BILIRUBIN,TOTAL 0.4 mg/dL (0.2-1.0); CALCIUM 9.2 mg/dL (8.5-10.3); CHOL/HDL RATIO 2.9 (<4.4); CHOLESTEROL 153 mg/dL; GFR - MDRD 92 (>89); GLUCOSE 93 mg/dL (70-100); HDL CHOLESTEROL 52 mg/dL; LDL CHOLESTEROL,CALCULATED 68 mg/dL; LDL/HDL RATIO 1.3 (<4.4); TOTAL PROTEIN 7.2 g/dL (6.7-8.2); TRIGLYCERIDES 164 mg/dL; URIC ACID 4.2 mg/dL (2.6-7.2); VLDL CHOLESTEROL 33 mg/dL
[2021-10-16 13:04] LABS: CRP - C-REACTIVE PROTEIN < 1.0 mg/dL (0-1.0)
== END 2021-10-16 08:47 | disposition home or self-care (01) ==
LOC: LAB.N 08:46
PROVIDERS: ATTEND Nurse Practitioner
DX: I10 Essential (primary) hypertension (principal); Z13.220 Encounter for screening for lipoid disorders; R53.83 Other fatigue; M13.0 Polyarthritis, unspecified
CPT/HCPCS: 36415; 80053; 80061; 81001; 81003; 83721; 84443; 84550; 85025; 85027; 85651; 86140; 86200; 86430; 87086